=== PATIENT | male | born 1955 | race Caucasian/White ===

== ENCOUNTER 2017-01-20 11:12 | Emergency (ER) | payer OTHER, MEDICARE ==
[2017-01-20 11:20] VITALS: BP 134/89
[2017-01-20] MEDS ORDERED: DOXYCYCLINE HYCLATE 100 MG TABLET PO ONE (11:58)
--- NOTE | 2017-01-20 12:00 | ER Document Report ---
ED Medical Screen (RME) - General Chief Complaint: Shortness Of Breath Stated Complaint: SHORTNESS OF BREATH Time Seen by Provider: 01/20/17 11:52 Notes: [age]-year-old male patient comes emergency room complaining of a one-week history of a red swelling to his upper back with his been getting worse. He also feels dizzy off balance and some shortness of breath. Brief exam suggests erythema migrans lesion on the back, another skin lesion on the neck he reports is an area that he pulled a tick off of about the same time the upper back lesion started. I have greeted and performed a rapid initial assessment of this patient. A comprehensive ED assessment and evaluation of the patient, analysis of test results and completion of the medical decision making process will be conducted by additional ED providers. TRAVEL OUTSIDE OF THE [place] IN LAST 30 DAYS: No - Related Data Allergies/Adverse Reactions: pseudoephedrine [From Sudafed] Allergy (Verified 01/20/17 11:17) triprolidine [From Actifed] Allergy (Verified 01/20/17 11:17) Past Medical History - Social History Chew tobacco use (# tins/day): No Frequency of alcohol use: Social Drug Abuse: Marijuana - Past Medical History Cardiac Medical History: Reports: Hx Congestive Heart Failure, Hx Heart Attack - x4, Hx Hypercholesterolemia, Hx Hypertension Renal/ Medical History: Denies: Hx Peritoneal Dialysis GI Medical History: Reports: Hx Gastroesophageal Reflux Disease Psychiatric Medical History: Reports: Hx Depression Past Surgical History: Reports: Hx Cardiac Surgery, Hx Tonsillectomy - Immunizations Hx Diphtheria, Pertussis, Tetanus Vaccination: Yes Physical Exam - Vital signs Vitals: Temp Pulse Resp BP Pulse Ox 98.1 F 76 16 134/89 H 97 01/20/17 11:01/20/17 11:01/20/17 11:01/20/17 11:17 01/20/17 11:17 Course - Vital Signs Vital signs: Temp Pulse Resp BP Pulse Ox 98.1 F 76 16 134/89 H 97 01/20/17 11:17 01/20/17 11:17 01/20/17 11:17 01/20/17 11:17 01/20/17 11:17
[2017-01-20 12:28] LABS: ABSOLUTE EOSINOPHILS # (AUTO) 0.1 10^3/uL (0.0-0.6); ABSOLUTE LYMPHOCYTES (AUTO) 1.7 10^3/uL (0.5-4.7); ABSOLUTE MONOCYTES (AUTO) 0.7 10^3/uL (0.1-1.4); ABSOLUTE NEUT (AUTO) 3.1 10^3/uL (1.7-8.2); BASOPHILS % (AUTO) 0.5 % (0-2); EOSINOPHILS % (AUTO) 2.3 % (0-6); HEMATOCRIT 42.8 % (37.9-51.0); HEMOGLOBIN 14.5 g/dL (13.5-17.0); HGB HCT DIFFERENCE 0.7; LYMPHOCYTES % (AUTO) 30.3 % (13-45); MEAN CORPUSCULAR HGB CONC 33.9 g/dL (32.0-36.0); MEAN CORPUSCULAR VOLUME 91 fl (80-97); MONOCYTES % (AUTO) 12.2 % (3-13); RED BLOOD COUNT 4.68 10^6/uL (4.35-5.55); RED CELL DISTRIBUTION WIDTH 15.1 % (11.5-14.0); SEGMENTED NEUTROPHILS % (AUTO) 54.7 % (42-78); WHITE BLOOD COUNT 5.7 10^3/uL (4.0-10.5)
[2017-01-20 12:52] LABS: ALANINE AMINOTRANSFERASE 46 U/L (21-72); ALBUMIN 4.1 g/dL (3.5-5.0); ALKALINE PHOSPHATASE 100 U/L (38-126); ANION GAP 10 (5-19); ASPARTATE AMINO TRANSFERASE 33 U/L (17-59); BILIRUBIN,DIRECT 0.3 mg/dL (0.0-0.4); BILIRUBIN,TOTAL 0.4 mg/dL (0.2-1.3); BLOOD UREA NITROGEN 11 mg/dL (7-20); CALCIUM 9.2 mg/dL (8.4-10.2); CARBON DIOXIDE 25 mmol/L (22-30); CHLORIDE 106 mmol/L (98-107); CREATININE RESULT 0.87 mg/dL (0.52-1.25); GLUCOSE 114 mg/dL (75-110); POTASSIUM 4.5 mmol/L (3.6-5.0); SODIUM 140.9 mmol/L (137-145); TOTAL PROTEIN 7.5 g/dL (6.3-8.2)
--- NOTE | 2017-01-20 14:55 | ER Document Report ---
ED Respiratory Problem - General Chief Complaint: Shortness Of Breath Stated Complaint: SHORTNESS OF BREATH Time Seen by Provider: 01/20/17 11:52 Mode of Arrival: Ambulatory Information source: Patient Notes: Patient is a 61-year-old male who presents to the ER today for a rash to his upper back. Patient pulled a tick off of the right side of his neck one week ago and noticed the rash 3 days ago. Patient states that the rash is doing larger, red and only slightly tender to palpation. He denies any fevers, chills , joint pain, nausea, vomiting, blurred vision. He also admits that over the past week he has become more short of breath, He has CHF and takes Lasix as needed. He states that this is exertional. he denies swelling in his lower extremities. TRAVEL OUTSIDE OF THE [place] IN LAST 30 DAYS: No - Related Data Allergies/Adverse Reactions: pseudoephedrine [From Sudafed] Allergy (Verified 01/20/17 11:17) triprolidine [From Actifed] Allergy (Verified 01/20/17 11:17) Past Medical History - General Information source: Patient - Social History Smoking Status: Current Every Day Smoker Chew tobacco use (# tins/day): No Frequency of alcohol use: Social Drug Abuse: Marijuana Family History: Reviewed & Not Pertinent Patient has suicidal ideation: No Patient has homicidal ideation: No - Past Medical History Cardiac Medical History: Reports: Hx Congestive Heart Failure, Hx Heart Attack - x4, Hx Hypercholesterolemia, Hx Hypertension Renal/ Medical History: Denies: Hx Peritoneal Dialysis GI Medical History: Reports: Hx Gastroesophageal Reflux Disease Psychiatric Medical History: Reports: Hx Depression Past Surgical History: Reports: Hx Cardiac Surgery, Hx Tonsillectomy - Immunizations Hx Diphtheria, Pertussis, Tetanus Vaccination: Yes Review of Systems - Review of Systems Constitutional: No symptoms reported EENT: No symptoms reported Cardiovascular: No symptoms reported Respiratory: No symptoms reported Gastrointestinal: No symptoms reported Genitourinary: No symptoms reported Male Genitourinary: No symptoms reported Musculoskeletal: No symptoms reported Skin: No symptoms reported Hematologic/Lymphatic: No symptoms reported Neurological/Psychological: No symptoms reported Physical Exam - Vital signs Vitals: Temp Pulse Resp BP Pulse Ox 98.1 F 76 16 134/89 H 97 01/20/17 11:17 01/20/17 11:17 01/20/17 11:17 01/20/17 11:17 01/20/17 11:17 - Notes Notes: PHYSICAL EXAMINATION: GENERAL: Well-appearing and in no acute distress. HEAD: Atraumatic, normocephalic. EYES: Pupils equal round and reactive to light, extraocular movements intact, sclera anicteric, conjunctiva are normal. ENT: ear canals without erythema or foreign body, TMs pearly gonsales with good bony landmarks, nares patent, oropharynx clear without exudates. Moist mucous membranes. NECK: Normal range of motion, supple without lymphadenopathy LUNGS: CTAB and equal. No wheezes rales or rhonchi. HEART: Regular rate and rhythm without murmurs ABDOMEN: Soft, no tenderness. No guarding, no rebound BACK: no vertebral tenderness, normal ROM EXTREMITIES: Normal range of motion, no pitting edema. No cyanosis. NEUROLOGICAL: Cranial nerves grossly intact. Normal sensory/motor exams. PSYCH: Normal mood, normal affect. SKIN: Warm, Dry, normal turgor, target rash c/w erythema migrans on left upper back, nontender, no fluctuance, no induration Course - Re-evaluation Re-evalutation: 01/20/17 19:09 labwork unremarkable today, doxycycline started for lyme disease. Chest x-ray negative for any acute pathology, patient does not have any edema to the lower extremities. I did advise him due to his history of CHF and acute shortness of breath to start back on his Lasix daily until symptoms resolve when he follows up with his primary care provider. Lung sounds are clear today and vitals are all normal with a pulse ox of 98% on room air, normal respiratory rate. - Vital Signs Vital signs: Temp Pulse Resp BP Pulse Ox 98.1 F 76 16 134/89 H 97 01/20/17 11:18 01/20/17 11:18 01/20/17 11:18 01/20/17 11:18 01/20/17 11:18 - Laboratory Result Diagrams: 01/20/17 12:12 01/20/17 12:12 Laboratory results interpreted by me: 01/20/17 01/20/17 12:12 12:12 RDW 15.1 H Glucose 114 H Discharge - Discharge Clinical Impression: Erythema migrans (Lyme disease), SOB (shortness of breath) Condition: Stable Disposition: HOME, SELF-CARE Instructions: Lyme Disease ([facility]), Doxycycline ([facility]) Additional Instructions: Please start taking your Lasix daily until your shortness of breath is resolved. Return immediately for any new or worsening symptoms. Follow up with primary care provider, call tomorrow to make followup appointment. Prescriptions: Doxycycline Hyclate 100 mg PO BID #28 capsule
--- NOTE | 2017-01-20 15:56 | RADIOLOGY REPORT (SQ) ---
EXAM DESCRIPTION: CHEST PA/LAT COMPLETED DATE/TIME: 01/20/2017 3:43 pm REASON FOR STUDY: sob, chf COMPARISON: 01/08/2016 EXAM PARAMETERS: NUMBER OF VIEWS: two views TECHNIQUE: Digital Frontal and Lateral radiographic views of the chest acquired. RADIATION DOSE: NA LIMITATIONS: none FINDINGS: LUNGS AND PLEURA: No opacities, masses or pneumothorax. No pleural effusion. MEDIASTINUM AND HILAR STRUCTURES: No masses or contour abnormalities. HEART AND VASCULAR STRUCTURES: Heart normal size. No evidence for failure. BONES: No acute findings. HARDWARE: Pacemaker/ defibrillator on the left. OTHER: No other significant finding. IMPRESSION: NO SIGNIFICANT RADIOGRAPHIC FINDING IN THE CHEST. TECHNICAL DOCUMENTATION: JOB ID: [id number] [employer]- All Rights Reserved
[2017-01-24 08:01] LABS: LYME DISEASE IGG AND IGM AB <0.91 ISR (0.00-0.90); ROCKY MTN SPOTTED FEV IGG EIA Negative (Negative)
== END 2017-01-20 16:30 | disposition home or self-care (01) ==
LOC: ER 11:12
DX: A69.20 Lyme disease, unspecified (principal); R06.02 Shortness of breath; R21 Rash and other nonspecific skin eruption; M54.6 Pain in thoracic spine; S10.96XA Insect bite of unspecified part of neck, initial encounter; W57.XXXA Bitten or stung by nonvenomous insect and other nonvenomous arthropods, initial encounter; F17.200 Nicotine dependence, unspecified, uncomplicated
CPT/HCPCS: 36415; 71020; 80053; 85025; 86617; 86618; 86757; 99285

== ENCOUNTER 2020-05-10 23:29 | Observation (INO) | payer OTHER, MEDICARE ==
[2020-05-10 23:49] LABS: ABSOLUTE BASOPHILS # (AUTO) 0.1 10^3/uL (0.0-0.2); ABSOLUTE EOSINOPHILS # (AUTO) 0.1 10^3/uL (0.0-0.6); ABSOLUTE LYMPHOCYTES (AUTO) 2.7 10^3/uL (0.5-4.7); ABSOLUTE MONOCYTES (AUTO) 0.6 10^3/uL (0.1-1.4); ABSOLUTE NEUT (AUTO) 3.8 10^3/uL (1.7-8.2); BASOPHILS % (AUTO) 0.7 % (0-2); EOSINOPHILS % (AUTO) 1.7 % (0-6); HEMATOCRIT 39.7 % (37.9-51.0); HEMOGLOBIN 14.4 g/dL (13.5-17.0); LYMPHOCYTES % (AUTO) 37.4 % (13-45); MEAN CORPUSCULAR HEMOGLOBIN 33.1 pg (27.0-33.4); MEAN CORPUSCULAR HGB CONC 36.2 g/dL (32.0-36.0); MEAN CORPUSCULAR VOLUME 92 fl (80-97); MONOCYTES % (AUTO) 8.3 % (3-13); PLATELET COUNT 179 10^3/uL (150-450); RED BLOOD COUNT 4.34 10^6/uL (4.35-5.55); RED CELL DISTRIBUTION WIDTH 15.2 % (11.5-14.0); SEGMENTED NEUTROPHILS % (AUTO) 51.9 % (42-78); TOTAL CELLS COUNTED % (AUTO) 100 %; WHITE BLOOD COUNT 7.2 10^3/uL (4.0-10.5)
[2020-05-10] MEDS ORDERED: ASPIRIN 81 MG TABLET, CHEWABLE PO ONE (23:54)
[2020-05-10] MEDS ORDERED: MORPHINE SULFATE 10 MG/ML INJ IV ONE (23:54)
[2020-05-10] MEDS ORDERED: ONDANSETRON HCL INJ/PF 4 MG/2 ML SDV IV ONE (23:55)
--- NOTE | 2020-05-11 00:01 | ER Document Report ---
ED Cardiac - General Chief Complaint: Chest Pain Stated Complaint: CHEST PAIN Time Seen by Provider: 05/10/20 23:54 Primary Care Provider: BLAZE MCCRAY [NO LOCAL MD] - Follow up as needed Mode of Arrival: Medic Information source: Patient Notes: 64-year-old male arrives by EMS after having chest pain which was on and off since 1700 hrs. Patient has a history of having an IL in 2003 and in 2004 had a pacemaker placed. The battery was replaced and 2012. He was in [place] around 15 years ago and was told by human resources generalist he had a 5 to 7-year life span. Patient smokes cigars on a daily basis and smoked 1 today after watching his [employer] football team get defeated. Today it was Monday. Patient denies any coronavirus exposure. He and his and 4 dogs and 3 cats moved from [place] to [place] over the last 4 days. His times are therefore a bit groggy/disoriented today because the house moved. Patient drinks bourbon on a daily basis. He denies any illegal drugs. EMS was called by and patient took 1 of his old nitroglycerin tablets which was not very active. He got 4 nitroglycerin sprays by EMS which helped decrease his chest pain from a 7 to a 3. I just checked on him at 0 115 and it continues to be a 3. He does however have a very severe throbbing headache. He thinks this is from the nitroglycerin. TRAVEL OUTSIDE OF THE [place] IN LAST 30 DAYS: No - HPI Patient complains to provider of: Chest pain Use of: Alcohol Was the onset of pain: Sudden Is the pain a: New problem Chest pain location: Substernal Quality of pain: Tightness Severity now: Moderate - Around a 7 out of 10 chest pain upon arrival via EMS. 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 The EMS placed a IV into his left dorsal hand. - Related Data Allergies/Adverse Reactions: pseudoephedrine [From Sudafed] Allergy (Verified 03/27/20 00:39) triprolidine [From Actifed] Allergy (Verified 03/27/20 00:39) Past Medical History - Social History Smoking Status: Unknown if Ever Smoked Cigarette use (# per day): Yes - And cigars Chew tobacco use (# tins/day): No Smoking Education Provided: No Frequency of alcohol use: Occasional Drug Abuse: None Lives with: Family Family History: COPD, Other - CHF Patient has suicidal ideation: No Patient has homicidal ideation: No - Past Medical History Cardiac Medical History: Reports: Hx Congestive Heart Failure, Hx Heart Attack - x4, Hx Hypercholesterolemia, Hx Hypertension Renal/ Medical History: Denies: Hx Peritoneal Dialysis GI Medical History: Reports: Hx Gastroesophageal Reflux Disease Psychiatric Medical History: Reports: Hx Anxiety, Hx Depression Past Surgical History: Reports: Hx Cardiac Surgery, Hx Pacemaker - w/ defib, Hx Tonsillectomy - Immunizations Hx Diphtheria, Pertussis, Tetanus Vaccination: Yes Review of Systems - Review of Systems Constitutional: See HPI, Weakness EENT: No symptoms reported Cardiovascular: See HPI, Chest pain Respiratory: See HPI, Short of breath Gastrointestinal: No symptoms reported Genitourinary: No symptoms reported Male Genitourinary: No symptoms reported Musculoskeletal: No symptoms reported Skin: No symptoms reported Hematologic/Lymphatic: No symptoms reported Neurological/Psychological: No symptoms reported Physical Exam - Vital signs Vitals: Temp Resp BP Pulse Ox 98.6 F 14 124/79 97 05/10/20 23:34 05/10/20 23:34 05/10/20 23:34 05/10/20 23:34 Interpretation: Normal - General General appearance: Alert - HEENT Head: Normocephalic, Atraumatic Eyes: Normal Pupils: PERRL Sinus: Normal Nasal: Normal Mouth/Lips: Normal Mucous membranes: Normal Pharynx: Normal Neck: Normal - Respiratory Respiratory status: No respiratory distress Chest status: Nontender Breath sounds: Normal Chest palpation: Normal - Cardiovascular Rhythm: Regular Heart sounds: Normal auscultation Murmur: No - Abdominal Inspection: Normal Distension: No distension Bowel sounds: Normal Tenderness: Nontender Organomegaly: No organomegaly - Rectal Prostate: Other - deferred - Genitourinary Scrotum: Other - deferred - Back Back: Normal - Extremities General upper extremity: Normal inspection, Nontender, Normal color, Normal ROM, Normal temperature General lower extremity: Normal inspection, Nontender, Normal color, Normal ROM, Normal temperature, Normal weight bearing. No: Apoorva's sign - Neurological Neuro grossly intact: Yes Cognition: Normal Orientation: AAOx4 Spencer Coma Scale Eye Opening: Spontaneous Spencer Coma Scale Verbal: Oriented Spencer Coma Scale Motor: Obeys Commands Spencer Coma Scale Total: 15 Speech: Normal Motor strength normal: LUE, RUE, LLE, RLE Sensory: Normal - Psychological Associated symptoms: Normal affect - Skin Skin Temperature: Warm Skin Moisture: Dry Skin Color: Normal Course - Vital Signs Vital signs: Temp Pulse Resp BP Pulse Ox 98.6 F 15 117/63 98 05/10/20 23:36 05/11/20 01:01 05/11/20 01:01 05/11/20 01:01 - Laboratory Result Diagrams: 05/10/20 23:32 05/10/20 23:32 Laboratory results interpreted by me: 05/10/20 05/10/20 05/10/20 23:32 23:32 23:32 RBC 4.34 L MCHC 36.2 H RDW 15.2 H Potassium 3.5 L Chloride 108 H Glucose 124 H Magnesium Creatine Kinase 183 H NT-Pro-B Natriuret Pep 539 H 05/10/20 23:32 RBC MCHC RDW Potassium Chloride Glucose Magnesium 2.5 H Creatine Kinase NT-Pro-B Natriuret Pep - Diagnostic Test Radiology reviewed: Reports reviewed - No obvious COVID lesions or pneumonia. Patient has a pacer in the left chest. - EKG Interpretation by Me EKG shows normal: Sinus rhythm Rate: Normal Rhythm: NSR - With heart rate 84 bpm with paired ventricular premature complexes sinus rhythm probable left atrial abnormality borderline R wave progression anterior leads nonspecific T wave abnormalities lateral leads and borderline prolonged QT interval and I agree with the computer readout from this EKG. I also evaluated this EKG. Critical Care Note - Critical Care Note Comments: I discussed this case with Dr. Lowe at 0100 and he advised admission with hospitalist and he will evaluate the patient tomorrow morning. This case was discussed with Dr. Ryan Hendricks at 0 112 and he advises obs telemetry and to obtain a better family history Discharge - Discharge Clinical Impression: Chest pain at rest CHF (congestive heart failure) Qualifiers: Heart failure type: unspecified Heart failure chronicity: unspecified Qualified Code(s): I50.9 - Heart failure, unspecified Clinical Impression: (Ruled Out): CAD (coronary artery disease) Condition: Good Disposition: ADMITTED OBSERVATION Admitting Provider: baltazar Pena Unit Admitted: Telemetry Additional Instructions: Transfer this patient to the observation telemetry bed. [facility]errals: [facility] [NO LOCAL MD] - Follow up as needed
[2020-05-11 00:16] LABS: INTERNATIONAL RATION (INR) 0.95; PROTHROMBIN TIME 12.9 SEC (11.4-15.4)
--- NOTE | 2020-05-11 00:17 | RADIOLOGY REPORT (SQ) ---
EXAM DESCRIPTION: [facility]: XR CHEST 1 VIEW CLINICAL HISTORY: 64 years Male; chest pain; COMPARISON: 01/20/2017 FINDINGS: Lungs: Lungs are clear, with no focal infiltrate, pneumothorax, or pleural effusion. Mediastinum: Mediastinum is within normal limits for this positioning. AICD is in place, as on prior exam. Bones: Bony structures are unremarkable. IMPRESSION: 1. No acute pulmonary findings. 2. AICD
[2020-05-11 00:32] LABS: ALKALINE PHOSPHATASE 84 U/L (38-126); ANION GAP 7 (5-19); ASPARTATE AMINO TRANSFERASE 29 U/L (17-59); BILIRUBIN,DIRECT 0.3 mg/dL (0.0-0.4); BILIRUBIN,TOTAL 0.4 mg/dL (0.2-1.3); BLOOD UREA NITROGEN 16 mg/dL (7-20); CARBON DIOXIDE 27 mmol/L (22-30); CHLORIDE 108 mmol/L (98-107); CREATINE KINASE 183 U/L (55-170); GLUCOSE 124 mg/dL (75-110); POTASSIUM 3.5 mmol/L (3.6-5.0); TOTAL PROTEIN 7.2 g/dL (6.3-8.2)
[2020-05-11 00:39] LABS: CREATINE KINASE MB 2.22 ng/mL (<4.55); TROPONIN I < 0.012 ng/mL
[2020-05-11] MEDS ORDERED: NITROGLYCERIN 2% OINTMENT 1 GM PACKET TP ONE (01:06)
[2020-05-11] MEDS ORDERED: FENTANYL CITRATE INJ/PF 100 MCG/2 ML AMPUL IV ONE (01:20)
[2020-05-11] MEDS ORDERED: MORPHINE SULFATE 10 MG/ML INJ IV PRN ×4 (01:39→03:46)
[2020-05-11] MEDS ORDERED: MAG HYDROX/AL HYDROX/SIMETH SUSP 30 ML UDCUP PO PRN (01:39)
[2020-05-11] MEDS ORDERED: LORAZEPAM INJ 2 MG/1 ML VIAL IV PRN (01:39)
[2020-05-11] MEDS ORDERED: GUAIFENESIN SYRP 200 MG/10 ML UDC PO PRN (01:39)
[2020-05-11] MEDS ORDERED: MAGNESIUM HYDROXIDE SUSP 30 ML UDCUP PO PRN (01:39)
[2020-05-11] MEDS ORDERED: LEVALBUTEROL HCL NEB 0.63 MG/3 ML AMPUL NEB PRN (01:39)
[2020-05-11] MEDS ORDERED: HYDRALAZINE HCL INJ/PF 20 MG/1 ML SDV IV PRN (01:39)
[2020-05-11] MEDS ORDERED: NICOTINE 21 MG/24 HR PATCH.TD24 TD PRN (01:39)
[2020-05-11] MEDS ORDERED: ACETAMINOPHEN 325 MG TABLET PO PRN (01:39)
[2020-05-11] MEDS ORDERED: MELATONIN 5 MG TABLET PO PRN (01:39)
[2020-05-11] MEDS ORDERED: ONDANSETRON HCL INJ/PF 4 MG/2 ML SDV IV PRN (01:59)
--- NOTE | 2020-05-11 02:12 | EKG REPORT ---
SEVERITY:- ABNORMAL ECG - SINUS RHYTHM PAIRED VENTRICULAR PREMATURE COMPLEXES PROBABLE LEFT ATRIAL ABNORMALITY PVC : Confirmed by: Cesia Walker MD 11-May-2020 02:12:09
--- NOTE | 2020-05-11 05:10 | PDOC H&P ---
History of Present Illness Admission Date/PCP: 05/11/2020 01:43 [facility] Patient complains of: Chest pain History of Present Illness: HERNAN ÁLVAREZ is a 64 year old male who presents the emergency room with acute chest pain. He admits developing intermittent brief periods of chest pain about 1 PM on 05/10/2020. The chest pain was a mild intermittent substernal tightness/pressure without radiation. The pain began while he was sitting at home watching football on television. He continued to have intermittent episodes of pain until he developed a sustained episode of moderately severe pain radiating down his left arm at 11 PM causing him to summon EMS. He admits accompanying moderate dyspnea with generalized weakness and associated orthostatic lightheadedness. He denies other associated or accompanying signs and symptoms. He admits prior similar episodes due to coronary artery disease. He did take nitroglycerin at home without improvement prior to calling EMS. He has not identified any aggravating or ameliorating factors for his chest pain. In the emergency room he was found to have an EKG and initial cardiac enzymes that showed no evidence of acute myocardial ischemia or injury. His pain improved with nitroglycerin, oxygen and aspirin given by EMS. His pain resolved with morphine and additional nitroglycerin in the emergency room. He was subsequently admitted to the hospital on observation status for further evaluation and treatment. Past Medical History Cardiac Medical History: Reports: Congestive Heart Failure, Coronary Artery Disease, Myocardial Infarction - x4, Hyperlipidema, Hypertension, Other - Ventricular fibrillation Denies: DVT, Pulmonary Embolism Pulmonary Medical History: Denies: Asthma, Chronic Obstructive Pulmonary Disease (COPD) EENT Medical History: Denies: Cataracts, Ears - Hearing aids Neurological Medical History: Reports: Other - Restless leg syndrome Denies: Hemorrhagic CVA, Ischemic CVA, Seizures Endocrine Medical History: Denies: Diabetes Mellitus Type 1, Diabetes Mellitus Type 2, Hyperthyroidism, Hypothyroidism Renal/ Medical History: Denies: Chronic Kidney Disease, Nephrolithiasis Malignancy Medical History: Reports: None GI Medical History: Reports: Gastroesophageal Reflux Disease Denies: Cirrhosis, Hepatitis Musculoskeltal Medical History: Denies: Arthritis, Gout Skin Medical History: Denies: Eczema, Psoriasis Psychiatric Medical History: Reports: Depression Denies: Alcohol Dependency, Substance Abuse, Tobacco Dependency Traumatic Medical History: Reports: None Hematology: Denies: Anemia, Bleeding Tendencies Infectious Medical History: Reports: None Past Surgical History Past Surgical History: Reports: Cardiac Catheterization, Coronary Stent, Internal Defibrillator - AICD combo with pacemaker, Pacemaker - AICD combo with pacemaker, Tonsillectomy, Other - Nasal surgery Social History Information Source: Patient Lives with: Spouse/Significant other Smoking Status: Current Every Day Smoker Electronic Cigarette use?: No Frequency of Alcohol Use: Social Hx Recreational Drug Use: No Drugs: None Hx Prescription Drug Abuse: No - Advance Directive Resuscitation Status: Full Code Surrogate healthcare decision maker:: Betsey Marrero Family History Family History: DM, Malignancy. denies: CAD, Hypertension Parental Family History Reviewed: Yes Children Family History Reviewed: No Sibling(s) Family History Reviewed.: Yes Medication/Allergy Home Medications: Doxycycline Hyclate 100 mg PO BID #28 capsule 01/20/17 Metoclopramide HCl [Reglan] 10 mg PO TID PRN #40 tablet 03/27/20 Allergies/Adverse Reactions: pseudoephedrine [From Sudafed] Allergy (Verified 03/27/20 00:39) triprolidine [From Actifed] Allergy (Verified 03/27/20 00:39) Review of Systems Constitutional: PRESENT: as per HPI, weakness - Generalized, weight loss - He has been unintentionally losing weight over the last year. ABSENT: chills, fever(s) Eyes: ABSENT: visual disturbances, other - Eye pain Ears: ABSENT: hearing changes, other - Ear pain Nose, Mouth, and Throat: ABSENT: headache(s), sore throat Cardiovascular: PRESENT: as per HPI, chest pain, other - Orthostatic lightheadedness. ABSENT: dyspnea on exertion, edema, palpitations Respiratory: PRESENT: as per HPI, cough - Chronic, dyspnea Gastrointestinal: ABSENT: abdominal pain, constipation, diarrhea, nausea, vomiting Genitourinary: ABSENT: dysuria, hematuria Musculoskeletal: ABSENT: back pain, joint swelling, muscle weakness Integumentary: ABSENT: pruritus, rash Neurological: ABSENT: confusion, convulsions, focal weakness, memory loss, syncope Psychiatric: ABSENT: anxiety, depression Endocrine: ABSENT: cold intolerance, heat intolerance Hematologic/Lymphatic: ABSENT: easy bleeding, easy bruising Allergic/Immunologic: ABSENT: seasonal rhinorrhea Physical Exam Vital Signs: Temp Pulse Resp BP Pulse Ox 98.1 F 75 17 117/63 98 05/11/20 01:32 05/11/20 01:32 05/11/20 01:32 05/11/20 01:32 05/11/20 01:32 General appearance: PRESENT: no acute distress, cooperative, obese Head exam: PRESENT: atraumatic, normocephalic Eye exam: PRESENT: conjunctiva pink. ABSENT: conjunctival injection, scleral icterus Ear exam: PRESENT: normal external ear exam. ABSENT: bleeding, drainage Mouth exam: PRESENT: dry mucosa, neck supple Neck exam: ABSENT: thyromegaly, tracheal deviation Respiratory exam: PRESENT: clear to auscultation jalil, symmetrical, unlabored Cardiovascular exam: PRESENT: RRR. ABSENT: clicks, gallop, rubs Pulses: PRESENT: normal radial pulses, normal dorsalis pedis pul Vascular exam: PRESENT: normal capillary refill. ABSENT: pallor GI/Abdominal exam: PRESENT: normal bowel sounds, soft Rectal exam: PRESENT: deferred Extremities exam: ABSENT: joint swelling, pedal edema Musculoskeletal exam: ABSENT: deformity, dislocation Neurological exam: PRESENT: alert, oriented to person, oriented to place, oriented to time, oriented to situation, CN II-XII grossly intact. ABSENT: motor sensory deficit Psychiatric exam: PRESENT: appropriate affect, normal mood Skin exam: ABSENT: dry, intact, jaundice, rash, urticaria, warm Results Laboratory Results: 05/10/20 23:32 05/10/20 23:32 05/10/20 05/10/20 05/10/20 23:32 23:32 23:32 WBC 7.2 RBC 4.34 L Hgb 14.4 Hct 39.7 MCV 92 MCH 33.1 MCHC 36.2 H RDW 15.2 H Plt Count 179 Seg Neutrophils % 51.9 Sodium 141.9 Potassium 3.5 L Chloride 108 H Carbon Dioxide 27 Anion Gap 7 BUN 16 Creatinine 0.87 Est GFR ( Amer) > 60 Glucose 124 H Calcium 9.0 Magnesium 2.5 H Total Bilirubin 0.4 AST 29 Alkaline Phosphatase 84 Total Protein 7.2 Albumin 4.0 05/10/20 05/10/20 05/10/20 23:32 23:32 23:32 Creatine Kinase 183 H CK-MB (CK-2) 2.22 Troponin I < 0.012 NT-Pro-B Natriuret Pep 539 H Impressions: Chest X-Ray 05/10/20 23:35 IMPRESSION: 1. No acute pulmonary findings. 2. AICD Assessment and Plan - Diagnosis (1) Chest pain at rest Is this a current diagnosis for this admission?: Yes (2) Coronary artery disease Qualifiers: Coronary Disease-Associated Artery/Lesion type: [place] artery [place] vs. transplanted heart: [place] heart Associated angina: angina presence unspecified Qualified Code(s): I25.10 - Atherosclerotic heart disease of [place] coronary artery without angina pectoris Is this a current diagnosis for this admission?: Yes (3) Gastroesophageal reflux disease Qualifiers: Esophagitis presence: esophagitis presence not specified Qualified Code(s): K21.9 - Gastro-esophageal reflux disease without esophagitis Is this a current diagnosis for this admission?: Yes (4) CHF (congestive heart failure) Qualifiers: Heart failure type: unspecified Heart failure chronicity: unspecified Qualified Code(s): I50.9 - Heart failure, unspecified Is this a current diagnosis for this admission?: Yes (5) Restless leg syndrome Is this a current diagnosis for this admission?: Yes (6) Tobacco use disorder, continuous Is this a current diagnosis for this admission?: Yes - Plan Summary Summary: Patient will be admitted to the telemetry unit where he will receive routine supportive and symptomatic cares. A consultation with Dr. Walker will be obtained for cardiology evaluation. Serial cardiac enzymes will be performed. Patient received morphine sulfate 2 to 4 mg IV every 2 hours as needed for pain. He will receive Ativan 1 mg IV every 4 hours as needed for anxiety or r estlessness. He will receive nitroglycerin 2% ointment 1 g applied every 6 hours. CBCs, metabolic profiles and additional radiographic and/or laboratory evaluations will be obtained as needed. Smoking cessation is advised and counseled briefly at the bedside. A nicotine replacement patch is available for the patient's use, if desired. - Time Time Spent with patient: 15-24 minutes Smoking Cessation Education: 3 to 10 minutes Medications reviewed and adjusted accordingly: Yes Anticipated Discharge Disposition: Home, Self Care Anticipated Discharge Timeframe: within 36 hours - Inpatient Certification Based on my medical assessment, after consideration of the patient's comorbidities, presenting symptoms, or acuity I expect that the services needed warrant INPATIENT care.: No I certify that my determination is in accordance with my understanding of Medicare's requirements for reasonable and necessary INPATIENT services [42 CFR 412.3e].: No
[2020-05-11] MEDS: HEPARIN SOD (PORCINE) 5,000 UNIT/ML 1 ML VIAL SUBCUT SCH ×3 (05:57→22:45)
[2020-05-11] MEDS: PANTOPRAZOLE SODIUM 40 MG TABLET.DR PO SCH ×2 (05:57→17:15)
[2020-05-11 06:52] LABS: CREATINE KINASE MB 1.58 ng/mL (<4.55)
[2020-05-11 07:03] LABS: TROPONIN I < 0.012 ng/mL
[2020-05-11] MEDS: DOCUSATE SODIUM 100 MG CAPSULE PO SCH ×2 (09:24→17:15)
[2020-05-11 12:21] LABS: CREATINE KINASE MB 1.47 ng/mL (<4.55)
[2020-05-11 12:28] LABS: TROPONIN I < 0.012 ng/mL
--- NOTE | 2020-05-11 16:39 | Progress Note ---
Provider Note Provider Note: Patient seen and examined by me today. Admitted late this morning by Dr. Hendricks, see H&P for full details of admission. Discussed the case with cardiology who is planning to evaluate the patient and adjust his medications. Outpatient testing planned in the future. I recommended the patient follow-up with advanced heart failure clinic if there is one locally.
[2020-05-11 17:48] LABS: CREATINE KINASE MB 1.26 ng/mL (<4.55); TROPONIN I 0.013 ng/mL
[2020-05-11] MEDS ORDERED: ATORVASTATIN CALCIUM 40 MG TABLET PO SCH (22:00)
[2020-05-11] MEDS ORDERED: ROPINIROLE HCL 1 MG TABLET PO SCH (22:00)
--- NOTE | 2020-05-11 22:06 | PDOC CONSULTATION ---
Consultation-Blank Consultation: CARDIOLOGY CONSULTATION by Dr. Cesia Walker on 05/11/2020. Patient seen for p.m. 60 minutes spent with patient more than 50% of time spent in direct patient care. REASON FOR CONSULTATION: Patient with history of CAD and prior history of SC and LAD stent and cardiomyopathy with history of AICD placement admitted with chest pain. Hence further cardiac evaluation. 2. Consult REQUESTING PHYSICIAN: Dr. Ryan Bowles, [facility]. HISTORY OF PRESENT ILLNESS: Patient is a 64-year-old male with known history of coronary artery disease, history of prior SC and LAD stent, cardiomyopathy and AICD placement, and history of hypertension and hyperlipidemia admitted with chest pain. The patient states around 1 PM yesterday while he was sitting down had intermittent chest pressure. It was associated with some degree of diaphoresis. Subsequently the chest heaviness became sustained and was of moderate intensity. There was no actual relief with sublingual nitroglycerin. The patient states subsequently was given a few more nitroglycerin sprays by the EMT which caused partial relief but no total relief of his chest pressure. It was associated with some degree of orthostatic dizziness and also some degree of shortness of breath. There is no palpitations or firing of his AICD. There is no PND orthopnea or leg edema. The patient's EKG shows no acute changes. And his troponin I is negative so far. Past Medical History Cardiac Medical History: Reports: Congestive Heart Failure, Coronary Artery Disease, Myocardial Infarction - x4, Hyperlipidema, Hypertension, Other - Ventricular fibrillation. The patient states in the past he has had an SC and cardiac catheterization told showed a totally occluded left anterior descending artery and LV ejection fraction was around 12%. He had opening of the total occlusion of the LAD and stents were placed. Subsequently a few months later his ejection fraction came up to 30%. He also has a history of ventricular fibrillation and has an AICD placed. This seems to be single-chamber AICD. He states he has not had a stress test in a few years. And he has not had an echocardiogram to see what his LV ejection fraction was. The patient states his cardiac catheterization and stent placement was in [facility]. Will get records. Denies: DVT, Pulmonary Embolism Pulmonary Medical History: Denies: Asthma, Chronic Obstructive Pulmonary Disease (COPD) EENT Medical History: Denies: Cataracts, Ears - Hearing aids Neurological Medical History: Reports: Other - Restless leg syndrome Denies: Hemorrhagic CVA, Ischemic CVA, Seizures Endocrine Medical History: Denies: Diabetes Mellitus Type 1, Diabetes Mellitus Type 2, Hyperthyroidism, Hypothyroidism Renal/ Medical History: Denies: Chronic Kidney Disease, Nephrolithiasis Malignancy Medical History: Reports: None GI Medical History: Reports: Gastroesophageal Reflux Disease Denies: Cirrhosis, Hepatitis Musculoskeltal Medical History: Denies: Arthritis, Gout Skin Medical History: Denies: Eczema, Psoriasis Psychiatric Medical History: Reports: Depression Denies: Alcohol Dependency, Substance Abuse, Tobacco Dependency Traumatic Medical History: Reports: None Hematology: Denies: Anemia, Bleeding Tendencies Infectious Medical History: Reports: None Past Surgical History Past Surgical History: Reports: Cardiac Catheterization, Coronary Stent, Internal Defibrillator - AICD combo with pacemaker, Pacemaker - AICD combo with pacemaker, Tonsillectomy, Other - Nasal surgery Social History Information Source: Patient Lives with: Spouse/Significant other Smoking Status: Current Every Day Smoker Electronic Cigarette use?: No Frequency of Alcohol Use: Social Hx Recreational Drug Use: No Drugs: None Hx Prescription Drug Abuse: No - Advance Directive Resuscitation Status: Full Code Surrogate healthcare decision maker:: Is the patient's , Ms. Betsey Marrero Family History Family History: DM, Malignancy. denies: CAD, Hypertension Parental Family History Reviewed: Yes Children Family History Reviewed: No Sibling(s) Family History Reviewed.: Yes Medication/Allergy Home Medications: Aspirin [Ecotrin 81 mg EC Tablet] 81 mg PO BID 05/11/20 Atorvastatin Calcium [Lipitor 80 mg Tablet] 80 mg PO QHS 05/11/20 Carvedilol 25 mg PO BID 05/11/20 Fluoxetine HCl [Prozac 20 mg Capsule] 20 mg PO DAILY 05/11/20 Furosemide [Lasix 40 mg Tablet] 40 mg PO DAILYP PRN 05/11/20 Lisinopril 10 mg PO DAILY 05/11/20. He states the last dose of lisinopril was yesterday around 12 noon. [There is on 05/10/2020]. Multivitamin [Tab-A-Starr] 1 each PO DAILY 05/11/20 Nitroglycerin [Nitrostat 0.4 mg (1/150 Gr) Tabs 25/Bottle] 1 tab SL Q5MP PRN 05/11/20 Omeprazole 40 mg PO DAILY 05/11/20 Ropinirole HCl [Requip] 7.5 mg PO QPM 05/11/20 Spironolactone [Aldactone 25 mg Tablet] 25 mg PO QAM 05/11/20 Allergies/Adverse Reactions: pseudoephedrine [From Sudafed] Allergy (Verified 03/27/20 00:39) triprolidine [From Actifed] Allergy (Verified 03/27/20 00:39) Current Medications Generic Name Dose Route Start Last Admin Trade Name Freq PRN Reason Stop Dose Admin Acetaminophen 650 mg 05/11/20 01:39 Tylenol 325 Mg Tablet PO 06/10/20 01:38 Q4HP PRN For headache, pain or fever Al Hydrox/Mg Hydrox/Simethicone 30 ml 05/11/20 01:39 Maalox Plus Susp 30 Udcup PO 06/10/20 01:38 Q6HP PRN HEARTBURN Atorvastatin Calcium 40 mg 05/11/20 22:00 05/11/20 22:43 Lipitor 40 Mg Tablet PO 06/10/20 21:59 40 mg QHS CHELA Administration Carvedilol 25 mg 05/11/20 22:00 05/11/20 22:43 Coreg 12.5 Mg Tablet PO 06/10/20 21:59 25 mg Q12 CHELA Administration Docusate Sodium 100 mg 05/11/20 10:00 05/11/20 17:15 Colace 100 Mg Capsule PO 06/10/20 09:59 100 mg BID CHELA Administration Furosemide 40 mg 05/12/20 10:00 Lasix 40 Mg Tablet PO 06/11/20 09:59 DAILY CHELA Guaifenesin 200 mg 05/11/20 01:39 Robitussin Syrup 200 Mg/10 Ml Ud Cup PO 06/10/20 01:38 Q4HP PRN COUGH Heparin Sodium (Porcine) 5,000 unit 05/11/20 06:00 05/11/20 22:45 Heparin Inj 5,000 Units/Ml 1 Ml Vial SUBCUT 06/10/20 05:59 5,000 unit Q8 CHELA Administration Hydralazine HCl 20 mg 05/11/20 01:39 Apresoline Inj/Pf 20 Mg/1 Ml Sdv IV 06/10/20 01:38 Q4HP PRN Give For Sbp > 160 / Dbp > 100 Levalbuterol HCl 0.63 mg 05/11/20 01:39 05/11/20 13:12 Xopenex Neb 0.63 Mg/3 Ml Ampul NEB 06/10/20 01:38 0.63 mg RTQ2HP PRN Administration SHORTNESS OF BREATH Lorazepam 1 mg 05/11/20 01:39 Ativan Inj 2 Mg/1 Ml Vial IV 05/18/20 01:38 Q4HP PRN ANXIETY/AGITATION Magnesium Hydroxide 30 ml 05/11/20 01:39 Milk Of Magnesia 30 Ml Udcup PO 06/10/20 01:38 HSP PRN FOR CONSTIPATION Melatonin 5 mg 05/11/20 01:39 Melatonin 5 Mg Tablet PO 06/10/20 01:38 HSP PRN SLEEP OR INSOMNIA Morphine Sulfate 2 mg 05/11/20 03:46 Morphine 10 Mg/Ml Inj IV 05/18/20 03:45 Q2HP PRN PAIN SCALE OF 2 Morphine Sulfate 3 mg 05/11/20 03:46 Morphine 10 Mg/Ml Inj IV 05/18/20 03:45 Q2HP PRN FOR PAIN SCALE 3-4 Morphine Sulfate 4 mg 05/11/20 03:46 Morphine 10 Mg/Ml Inj IV 05/18/20 03:45 Q2HP PRN PAIN SCALE OF 5 Nicotine 1 each 05/11/20 01:39 Nicoderm 21 Mg/24 Hr Transderm Patch TD 06/10/20 01:38 DAILYP PRN WITHDRAWAL SYMPTOMS Ondansetron HCl 4 mg 05/11/20 01:59 Zofran Inj/Pf 4 Mg/2 Ml Sdv IV 06/10/20 01:58 Q4HP PRN FOR NAUSEA/VOMITING Pantoprazole Sodium 40 mg 05/11/20 06:00 05/11/20 17:[address] Tablet PO 06/10/20 05:59 40 mg BID@0600,1700 CHELA Administration Ropinirole HCl 0.5 mg 05/11/20 22:00 05/11/20 22:44 Requip 1 Mg Tablet PO 06/10/20 21:59 0.5 mg QHS CHELA Administration Sodium Chloride 2.5 ml 05/11/20 06:00 05/11/20 22:48 Saline Flush 2.5 Ml Monoject Prefil Syrin IV 06/10/20 05:59 2.5 ml Q8 CHELA Administration Spironolactone 25 mg 05/12/20 10:00 Aldactone 25 Mg Tablet PO 06/11/20 09:59 DAILY CHELA Discontinued Medications Generic Name Dose Route Start Last Admin Trade Name Radha PRN Reason Stop Dose Admin Aspirin 324 mg 05/10/20 23:54 05/11/20 00:43 Aspirin 81 Mg Chewable Tablet PO 05/10/20 23:55 324 mg NOW ONE Administration Fentanyl Citrate 50 mcg 05/11/20 01:20 05/11/20 02:49 Sublimaze Inj/Pf 100 Mcg/2 Ml Ampule IV 05/11/20 01:21 Not Given NOW ONE Morphine Sulfate 4 mg 05/10/20 23:54 05/11/20 00:45 Morphine 10 Mg/Ml Inj IV 05/10/20 23:55 Not Given NOW ONE Morphine Sulfate 2 - 4 mg 05/11/20 01:39 Morphine 10 Mg/Ml Inj IV 05/18/20 01:38 Q2HP PRN See protocol Protocol Nitroglycerin 0.5 gm 05/11/20 01:06 05/11/20 02:48 Nitrol 2% Ointment 1gm Packet TP 05/11/20 01:07 Not Given NOW ONE Ondansetron HCl 4 mg 05/10/20 23:55 05/11/20 00:43 Zofran Inj/Pf 4 Mg/2 Ml Sdv IV 05/10/20 23:56 4 mg NOW ONE Administration Review of Systems Constitutional: PRESENT: as per HPI, weakness - Generalized, weight loss - He has been unintentionally losing weight over the last year. ABSENT: chills, fever(s) Eyes: ABSENT: visual disturbances, other - Eye pain Ears: ABSENT: hearing changes, other - Ear pain Nose, Mouth, and Throat: ABSENT: headache(s), sore throat Cardiovascular: PRESENT: as per HPI, chest pain, other - Orthostatic lightheadedness. ABSENT: dyspnea on exertion, edema, palpitations Respiratory: PRESENT: as per HPI, cough - Chronic, dyspnea Gastrointestinal: ABSENT: abdominal pain, constipation, diarrhea, nausea, vomiting Genitourinary: ABSENT: dysuria, hematuria Musculoskeletal: ABSENT: back pain, joint swelling, muscle weakness Integumentary: ABSENT: pruritus, rash Neurological: ABSENT: confusion, convulsions, focal weakness, memory loss, syncope Psychiatric: ABSENT: anxiety, depression Endocrine: ABSENT: cold intolerance, heat intolerance Hematologic/Lymphatic: ABSENT: easy bleeding, easy bruising Allergic/Immunologic: ABSENT: seasonal rhinorrhea PHYSICAL EXAMINATION: The patient is well-built and well-nourished. At present no acute distress. He was lying flat on his back and he has no orthopnea. Selected Entries 05/11/20 17:15 Temperature 98.0 F Temperature Oral Source Pulse Rate 73 Respiratory 19 Rate Blood Pressure 133/78 H Blood Pressure 96 Mean BP Location Left Arm BP Position Supine O2 Sat by Pulse 97 Oximetry Oxygen Delivery Room Air Method HEAD: Head is atraumatic normocephalic. Eyes: Pupils are equal round regular reactive light accommodation extraocular movements are normal there is no congenital pallor there is no scleral icterus. Ears: External auditory canals are clear, there are no lesions of the pinna. Nose: No deviated nasal septum and no inflammation of the nasal mucous membrane. Mouth: Mucous membranes of mouth are moist tongue is moist there is no ulcers there is no bleeding from the gums. Throat: There is no redness of the oropharynx there is no exudates. Skin: There is no petechia or ecchymosis there is no skin lesions or skin rashes. Neck: Neck is supple there is no JVD carotids equal there is no bruit there is no lymphadenopathy there is no neck stiffness. There is no goiter trachea central lungs: Lungs are clear to auscultation percussion there is no accessory muscles of respiration in use. There is no rhonchi rales or wheezing. There is no chest wall tenderness. HEART: S1-S2 is heard there is no S3 gallop there is no S4 gallop S1 is of normal intensity. There is no rub. The systolic murmur in the left sternal border and apex without radiation. Abdomen: Abdomen is soft nontender there is no paraspinal megaly bowel sounds well heard there is no tender areas of masses. There is no rebound guarding or rigidity. Extremities: Femorals are well felt there is no femoral bruits neck pulses are well felt there is no pedal edema there is no DVT or cellulitis there is no cyanosis or clubbing there is no DVT or cellulitis. There is no calf tenderness. TC OPERATOR: The patient is awake alert oriented 3 with no focal deficits. Psychiatric: The patient judgment and insight are intact and her affect is normal. KG #1: SINUS RHYTHM [PVPC] . PAIRED VENTRICULAR PREMATURE COMPLEXES [PLAA] . PROBABLE LEFT ATRIAL ABNORMALITY EKG #2 SINUS RHYTHM [VPC] . VENTRICULAR PREMATURE COMPLEX [AMI41] . CONSIDER ANTERIOR INFARCT [T3LA] . ABNORMAL T, CONSIDER ISCHEMIA, LATERAL LEADS Labs- Entire Visit 05/10/20 05/10/20 05/10/20 23:32 23:32 23:32 WBC 7.2 RBC 4.34 L Hgb 14.4 Hct 39.7 MCV 92 MCH 33.1 MCHC 36.2 H RDW 15.2 H Plt Count 179 Lymph % (Auto) 37.4 [place] % (Auto) 8.3 Eos % (Auto) 1.7 Baso % (Auto) 0.7 Absolute Neuts (auto) 3.8 Absolute Lymphs (auto) 2.7 Absolute Monos (auto) 0.6 Absolute Eos (auto) 0.1 Absolute Basos (auto) 0.1 Seg Neutrophils % 51.9 PT 12.9 INR 0.95 INR (Anticoag Therapy) APTT Sodium 141.9 Potassium 3.5 L Chloride 108 H Carbon Dioxide 27 Anion Gap 7 BUN 16 Creatinine 0.87 Est GFR ( Amer) > 60 Est GFR (MDRD) Non-Af > 60 Glucose 124 H Calcium 9.0 Magnesium Total Bilirubin 0.4 Direct Bilirubin 0.3 Neonat Total Bilirubin Not Reportable Neonat Direct Bilirubin Not Reportable Neonat Indirect Bili Not Reportable AST 29 ALT 25 Alkaline Phosphatase 84 Creatine Kinase 183 H CK-MB (CK-2) Troponin I NT-Pro-B Natriuret Pep Total Protein 7.2 Albumin 4.0 05/10/20 05/10/20 05/10/20 23:32 23:32 23:32 WBC RBC Hgb Hct MCV MCH MCHC RDW Plt Count Lymph % (Auto) [place] % (Auto) Eos % (Auto) Baso % (Auto) Absolute Neuts (auto) Absolute Lymphs (auto) Absolute Monos (auto) Absolute Eos (auto) Absolute Basos (auto) Seg Neutrophils % PT Cancelled INR Cancelled INR (Anticoag Therapy) Cancelled APTT 32.4 Sodium Potassium Chloride Carbon Dioxide Anion Gap BUN Creatinine Est GFR ( Amer) Est GFR (MDRD) Non-Af Glucose Calcium Magnesium Total Bilirubin Direct Bilirubin Neonat Total Bilirubin Neonat Direct Bilirubin Neonat Indirect Bili AST ALT Alkaline Phosphatase Creatine Kinase CK-MB (CK-2) 2.22 Troponin I < 0.012 NT-Pro-B Natriuret Pep 539 H Total Protein Albumin 05/10/20 05/11/20 05/11/20 23:32 05:30 05:30 WBC RBC Hgb Hct MCV MCH MCHC RDW Plt Count Lymph % (Auto) [place] % (Auto) Eos % (Auto) Baso % (Auto) Absolute Neuts (auto) Absolute Lymphs (auto) Absolute Monos (auto) Absolute Eos (auto) Absolute Basos (auto) Seg Neutrophils % PT INR INR (Anticoag Therapy) APTT Sodium Potassium Chloride Carbon Dioxide Anion Gap BUN Creatinine Est GFR ( Amer) Est GFR (MDRD) Non-Af Glucose Calcium Magnesium 2.5 H Total Bilirubin Direct Bilirubin Neonat Total Bilirubin Neonat Direct Bilirubin Neonat Indirect Bili AST ALT Alkaline Phosphatase Creatine Kinase 123 CK-MB (CK-2) 1.58 Troponin I < 0.012 NT-Pro-B Natriuret Pep Total Protein Albumin 05/11/20 05/11/20 05/11/20 11:16 11:16 17:05 WBC RBC Hgb Hct MCV MCH MCHC RDW Plt Count Lymph % (Auto) [place] % (Auto) Eos % (Auto) Baso % (Auto) Absolute Neuts (auto) Absolute Lymphs (auto) Absolute Monos (auto) Absolute Eos (auto) Absolute Basos (auto) Seg Neutrophils % PT INR INR (Anticoag Therapy) APTT Sodium Potassium Chloride Carbon Dioxide Anion Gap BUN Creatinine Est GFR ( Amer) Est GFR (MDRD) Non-Af Glucose Calcium Magnesium Total Bilirubin Direct Bilirubin Neonat Total Bilirubin Neonat Direct Bilirubin Neonat Indirect Bili AST ALT Alkaline Phosphatase Creatine Kinase 103 89 CK-MB (CK-2) 1.47 Troponin I < 0.012 NT-Pro-B Natriuret Pep Total Protein Albumin 05/11/20 17:05 WBC RBC Hgb Hct MCV MCH MCHC RDW Plt Count Lymph % (Auto) [place] % (Auto) Eos % (Auto) Baso % (Auto) Absolute Neuts (auto) Absolute Lymphs (auto) Absolute Monos (auto) Absolute Eos (auto) Absolute Basos (auto) Seg Neutrophils % PT INR INR (Anticoag Therapy) APTT Sodium Potassium Chloride Carbon Dioxide Anion Gap BUN Creatinine Est GFR ( Amer) Est GFR (MDRD) Non-Af Glucose Calcium Magnesium Total Bilirubin Direct Bilirubin Neonat Total Bilirubin Neonat Direct Bilirubin Neonat Indirect Bili AST ALT Alkaline Phosphatase Creatine Kinase CK-MB (CK-2) 1.26 Troponin I 0.013 NT-Pro-B Natriuret Pep Total Protein Albumin Chest X-Ray 05/10/20 23:35 IMPRESSION: 1. No acute pulmonary findings. 2. AICD IMPRESSION/RECOMMENDATION: 1. Chest pain. The patient has no further chest pains. There is no evidence of non-ST relation SC. There is some EKG changes in the lateral leads. Whether this is secondary to cardiac memory versus ischemia cannot be differentiated at present. Will get the patient's AICD interrogated. Note that the patient gets severe headache with the nitroglycerin. Hence we will start the patient on amlodipine later on. We will have the patient use sublingual nitroglycerin if needed. 2. Coronary artery disease. History of SC and history of totally occluded LAD which was opened up percutaneously and history of stent placement. Will get records. Will get a stress test on the patient this can be done as an outpatient. 3. Ischemic cardiomyopathy with LV ejection fraction of 30% a few years ago. We will recheck the patient's echocardiogram. This can be done as an outpatient also. Note that the patient took his last dose of lisinopril on 05/10/2020 at around 12 noon. Hence will wait for 36 hours prior to starting the patient on Entresto. We will continue the patient's Coreg. And spironolactone. 4. Ventricular fibrillation and status post AICD placement. No firing of AICD. Will get the AICD interrogated. 5. Hypertension: Well-controlled 6. Hyperlipidemia: Continue statin 7. History of GERD: Recommend continue pantoprazole. 8. History of restless leg syndrome. Medications reviewed. Medications restarted. Medical regimen and management plan discussed with attending provider on the case. Medical decision making is of high complexity. 60 minutes spent as patient more than 50% time spent in direct patient care. Will follow.
[2020-05-11] MEDS: CARVEDILOL 12.5 MG TABLET PO SCH (22:43)
[2020-05-12] MEDS: PANTOPRAZOLE SODIUM 40 MG TABLET.DR PO SCH (05:23)
[2020-05-12] MEDS: HEPARIN SOD (PORCINE) 5,000 UNIT/ML 1 ML VIAL SUBCUT SCH ×2 (05:23→13:32)
[2020-05-12 06:43] LABS: HEMATOCRIT 39.9 % (37.9-51.0); HEMOGLOBIN 13.6 g/dL (13.5-17.0); MEAN CORPUSCULAR HEMOGLOBIN 31.7 pg (27.0-33.4); MEAN CORPUSCULAR VOLUME 93 fl (80-97); PLATELET COUNT 149 10^3/uL (150-450); RED BLOOD COUNT 4.28 10^6/uL (4.35-5.55); RED CELL DISTRIBUTION WIDTH 14.9 % (11.5-14.0); WHITE BLOOD COUNT 5.1 10^3/uL (4.0-10.5)
--- NOTE | 2020-05-12 07:16 | EKG REPORT ---
SEVERITY:- ABNORMAL ECG - SINUS RHYTHM VENTRICULAR PREMATURE COMPLEX CONSIDER ANTERIOR INFARCT ABNORMAL T, CONSIDER ISCHEMIA, LATERAL LEADS : Confirmed by: Ric Morris MD 12-May-2020 07:16:23
[2020-05-12 07:22] LABS: ANION GAP 6 (5-19); BLOOD UREA NITROGEN 15 mg/dL (7-20); CALCIUM 8.6 mg/dL (8.4-10.2); CARBON DIOXIDE 26 mmol/L (22-30); CHLORIDE 107 mmol/L (98-107); CHOLESTEROL 154.04 mg/dL (0-200); GLUCOSE 112 mg/dL (75-110); POTASSIUM 3.8 mmol/L (3.6-5.0); TRIGLYCERIDES 134 mg/dL (<150)
[2020-05-12 07:32] LABS: DIRECT LDL 101 mg/dL (<100)
[2020-05-12] MEDS: DOCUSATE SODIUM 100 MG CAPSULE PO SCH (09:41)
[2020-05-12] MEDS: CARVEDILOL 12.5 MG TABLET PO SCH (09:41)
[2020-05-12] MEDS ORDERED: FUROSEMIDE 40 MG TABLET PO SCH (10:00)
[2020-05-12] MEDS ORDERED: SPIRONOLACTONE 25 MG TABLET PO SCH (10:00)
[2020-05-12] MEDS ORDERED: SACUBITRIL/VALSARTAN 24 MG/26 MG TABLET PO SCH (11:00)
--- NOTE | 2020-05-12 13:00 | PDOC DISCHARGE SUMMARY ---
Impression - Admit/DC Date/PCP Admission Date/Primary Care Provider: 05/11/20 01:42 KERMIT FIGUEROA MD Discharge Date: 05/12/20 - Assessment Summary: Patient will be admitted to the telemetry unit where he will receive routine supportive and symptomatic cares. A consultation with Dr. Walker will be obtained for cardiology evaluation. Serial cardiac enzymes will be performed. Patient received morphine sulfate 2 to 4 mg IV every 2 hours as needed for pain. He will receive Ativan 1 mg IV every 4 hours as needed for anxiety or restlessness. He will receive nitroglycerin 2% ointment 1 g applied every 6 hours. CBCs, metabolic profiles and additional radiographic and/or laboratory evaluations will be obtained as needed. Smoking cessation is advised and counseled briefly at the bedside. A nicotine replacement patch is available for the patient's use, if desired. - Additional Information Resuscitation Status: Full Code Discharge Diet: As Tolerated Discharge Activity: Activity As Tolerated Ref[facility]: [facility] [[facility]] - Follow up as needed (PATIENT WILL SCHEDULE OWN FOLLOW UP APPT.) Prescriptions: Sacubitril/Valsartan [Entresto 24 mg/26 mg Tablet] 1 tab PO Q12 #60 tablet Home Medications: Aspirin [Ecotrin 81 mg EC Tablet] 81 mg PO BID 05/11/20 Atorvastatin Calcium [Lipitor 80 mg Tablet] 80 mg PO QHS 05/11/20 Carvedilol 25 mg PO BID 05/11/20 Fluoxetine HCl [Prozac 20 mg Capsule] 20 mg PO DAILY 05/11/20 Multivitamin [Tab-A-Starr] 1 each PO DAILY 05/11/20 Nitroglycerin [Nitrostat 0.4 mg (1/150 Gr) Tabs 25/Bottle] 1 tab SL Q5MP PRN 05/11/20 Omeprazole 40 mg PO DAILY 05/11/20 Ropinirole HCl [Requip] 7.5 mg PO QPM 05/11/20 Spironolactone [Aldactone 25 mg Tablet] 25 mg PO QAM 05/11/20 Acetaminophen [Tylenol 325 mg Tablet] 650 mg PO Q4HP PRN tablet 05/12/20 Furosemide [Lasix 40 mg Tablet] 40 mg PO DAILY #0 05/12/20 Nicotine [Nicoderm 21 mg/24 Hr Transderm Patch] 1 each TD DAILYP PRN patch.td24 05/12/20 Sacubitril/Valsartan [Entresto 24 mg/26 mg Tablet] 1 tab PO Q12 #60 tablet 05/12/20 History of Present Illiness History of Present Illness: Per Admitting Physician: "HERNAN ÁLVAREZ is a 64 year old male who presents the emergency room with acute chest pain. He admits developing intermittent brief periods of chest pain about 1 PM on 05/10/2020. The chest pain was a mild intermittent substernal tightness/pressure without radiation. The pain began while he was sitting at home watching football on television. He continued to have intermittent episodes of pain until he developed a sustained episode of moderately severe pain radiating down his left arm at 11 PM causing him to summon EMS. He admits accompanying moderate dyspnea with generalized weakness and associated orthostatic lightheadedness. He denies other associated or accompanying signs and symptoms. He admits prior similar episodes due to coronary artery disease. He did take nitroglycerin at home without improvement prior to calling EMS. He has not identified any aggravating or ameliorating factors for his chest pain. In the emergency room he was found to have an EKG and initial cardiac enzymes that showed no evidence of acute myocardial ischemia or injury. His pain improved with nitroglycerin, oxygen and aspirin given by EMS. His pain resolved with morphine and additional nitroglycerin in the emergency room. He was subsequently admitted to the hospital on observation status for further evaluation and treatment." Hospital Course Hospital Course: Per Admitting Physician: "HERNAN ÁLVAREZ is a 64 year old male who presents the emergency room with acute chest pain. He admits developing intermittent brief periods of chest pain about 1 PM on 05/10/2020. The chest pain was a mild intermittent substernal tightness/pressure without radiation. The pain began while he was sitting at home watching football on television. He continued to have intermittent episodes of pain until he developed a sustained episode of moderately severe pain radiating down his left arm at 11 PM causing him to summon EMS. He admits accompanying moderate dyspnea with generalized weakness and associated orthostatic lightheadedness. He denies other associated or accompanying signs and symptoms. He admits prior similar episodes due to coronary artery disease. He did take nitroglycerin at home without improvement prior to calling EMS. He has not identified any aggravating or ameliorating factors for his chest pain. In the emergency room he was found to have an EKG and initial cardiac enzymes that showed no evidence of acute myocardial ischemia or injury. His pain improved with nitroglycerin, oxygen and aspirin given by EMS. His pain resolved with morphine and additional nitroglycerin in the emergency room. He was subsequently admitted to the hospital on observation status for further evaluation and treatment." Cardiology was consulted and they evaluated the patient as well. I discussed the case with them and they stated they would like the patient to have an outpatient echocardiogram and an outpatient stress test. They have started the patient on Entresto and this will be continued at discharge. It was carefully explained to the patient that he should not be taking any JAMES inhibitor's or ARB use while he is on Entresto. Patient has no new complaints today his chest pain is resolved. He is in agreement with the plan and would like to be discharged home today. (1) Chest pain at rest Is this a current diagnosis for this admission?: Yes (2) Coronary artery disease Qualifiers: Coronary Disease-Associated Artery/Lesion type: [place] artery [place] vs. transplanted heart: [place] heart Associated angina: angina presence unspecified Qualified Code(s): I25.10 - Atherosclerotic heart disease of [place] coronary artery without angina pectoris Is this a current diagnosis for this admission?: Yes (3) Gastroesophageal reflux disease Qualifiers: Esophagitis presence: esophagitis presence not specified Qualified Code(s): K21.9 - Gastro-esophageal reflux disease without esophagitis Is this a current diagnosis for this admission?: Yes (4) CHF (congestive heart failure) Qualifiers: Heart failure type: unspecified Heart failure chronicity: unspecified Qualified Code(s): I50.9 - Heart failure, unspecified Is this a current diagnosis for this admission?: Yes (5) Restless leg syndrome Is this a current diagnosis for this admission?: Yes (6) Tobacco use disorder, continuous Is this a current diagnosis for this admission?: Yes Physical Exam Vital Signs: Temp Pulse Resp BP Pulse Ox 97.4 F 70 17 129/72 H 95 05/12/20 10:40 05/12/20 10:40 05/12/20 10:40 05/12/20 10:40 05/12/20 10:40 Intake & Output 05/11/20 05/12/20 05/13/20 06:59 06:59 06:59 Intake Total 1320 240 Balance 1320 240 Weight 86 kg 88.8 kg General appearance: PRESENT: no acute distress, well-developed, well-nourished Head exam: PRESENT: atraumatic, normocephalic Eye exam: PRESENT: conjunctiva pink Mouth exam: PRESENT: moist Respiratory exam: PRESENT: clear to auscultation jalil. ABSENT: rales, rhonchi, wheezes Cardiovascular exam: PRESENT: RRR. ABSENT: diastolic murmur, rubs, systolic murmur GI/Abdominal exam: PRESENT: normal bowel sounds, soft. ABSENT: distended, guarding, mass, organolmegaly, rebound, tenderness Extremities exam: ABSENT: pedal edema Neurological exam: PRESENT: alert, awake, oriented to person, oriented to place, oriented to time, oriented to situation Psychiatric exam: PRESENT: appropriate affect, normal mood Skin exam: PRESENT: dry, intact, warm Results Laboratory Results: WBC 5.1 10^3/uL (4.0-10.5) 05/12/20 05:38 RBC 4.28 10^6/uL (4.35-5.55) L 05/12/20 05:38 Hgb 13.6 g/dL (13.5-17.0) 05/12/20 05:38 Hct 39.9 % (37.9-51.0) 05/12/20 05:38 MCV 93 fl (80-97) 05/12/20 05:38 MCH 31.7 pg (27.0-33.4) 05/12/20 05:38 MCHC 34.0 g/dL (32.0-36.0) 05/12/20 05:38 RDW 14.9 % (11.5-14.0) H 05/12/20 05:38 Plt Count 149 10^3/uL (150-450) L 05/12/20 05:38 Lymph % (Auto) 37.4 % (13-45) 05/10/20 23:32 [place] % (Auto) 8.3 % (3-13) 05/10/20 23:32 Eos % (Auto) 1.7 % (0-6) 05/10/20 23:32 Baso % (Auto) 0.7 % (0-2) 05/10/20 23:32 Absolute Neuts (auto) 3.8 10^3/uL (1.7-8.2) 05/10/20 23:32 Absolute Lymphs (auto) 2.7 10^3/uL (0.5-4.7) 05/10/20 23:32 Absolute Monos (auto) 0.6 10^3/uL (0.1-1.4) 05/10/20 23:32 Absolute Eos (auto) 0.1 10^3/uL (0.0-0.6) 05/10/20 23:32 Absolute Basos (auto) 0.1 10^3/uL (0.0-0.2) 05/10/20 23:32 Seg Neutrophils % 51.9 % (42-78) 05/10/20 23:32 PT 12.9 SEC (11.4-15.4) 05/10/20 23:32 PT Cancelled 05/10/20 23:32 INR 0.95 05/10/20 23:32 INR Cancelled 05/10/20 23:32 INR (Anticoag Therapy) Cancelled 05/10/20 23:32 APTT 32.4 SEC (23.5-35.8) 05/10/20 23:32 Sodium 139.3 mmol/L (137-145) 05/12/20 05:38 Potassium 3.8 mmol/L (3.6-5.0) 05/12/20 05:38 Chloride 107 mmol/L (98-107) 05/12/20 05:38 Carbon Dioxide 26 mmol/L (22-30) 05/12/20 05:38 Anion Gap 6 (5-19) 05/12/20 05:38 BUN 15 mg/dL (7-20) 05/12/20 05:38 Creatinine 0.84 mg/dL (0.52-1.25) 05/12/20 05:38 Est GFR ( Amer) > 60 (>60) 05/12/20 05:38 Est GFR (MDRD) Non-Af > 60 (>60) 05/12/20 05:38 Glucose 112 mg/dL (75-110) H 05/12/20 05:38 Calcium 8.6 mg/dL (8.4-10.2) 05/12/20 05:38 Magnesium 2.2 mg/dL (1.6-2.3) 05/12/20 05:38 Total Bilirubin 0.4 mg/dL (0.2-1.3) 05/10/20 23:32 Direct Bilirubin 0.3 mg/dL (0.0-0.4) 05/10/20 23:32 Neonat Total Bilirubin Not Reportable 05/10/20 23:32 Neonat Direct Bilirubin Not Reportable 05/10/20 23:32 Neonat Indirect Bili Not Reportable 05/10/20 23:32 AST 29 U/L (17-59) 05/10/20 23:32 ALT 25 U/L (<50) 05/10/20 23:32 Alkaline Phosphatase 84 U/L (38-126) 05/10/20 23:32 Creatine Kinase 89 U/L (55-170) 05/11/20 17:05 CK-MB (CK-2) 1.26 ng/mL (<4.55) 05/11/20 17:05 Troponin I 0.013 ng/mL 05/11/20 17:05 NT-Pro-B Natriuret Pep 539 pg/mL (<125) H 05/10/20 23:32 Total Protein 7.2 g/dL (6.3-8.2) 05/10/20 23:32 Albumin 4.0 g/dL (3.5-5.0) 05/10/20 23:32 Triglycerides 134 mg/dL (<150) 05/12/20 05:38 Cholesterol 154.04 mg/dL (0-200) 05/12/20 05:38 LDL Cholesterol Direct 101 mg/dL (<100) H 05/12/20 05:38 VLDL Cholesterol 27.0 mg/dL (10-31) 05/12/20 05:38 HDL Cholesterol 45 mg/dL (>40) 05/12/20 05:38 TSH 1.36 uIU/mL (0.47-4.68) 05/12/20 05:38 05/10/20 05/10/20 05/11/20 23:32 23:32 05:30 CK-MB (CK-2) 2.22 1.58 Troponin I < 0.012 < 0.012 NT-Pro-B Natriuret Pep 539 H 05/11/20 05/11/20 11:16 17:05 CK-MB (CK-2) 1.47 1.26 Troponin I < 0.012 0.013 NT-Pro-B Natriuret Pep Impressions: Chest X-Ray 05/10/20 23:35 IMPRESSION: 1. No acute pulmonary findings. 2. AICD Plan Plan of Treatment: Follow-up with PCP Follow-up with cardiology No smoking Time Spent: Greater than 30 Minutes Stroke Is this a Stroke Patient?: No Acute Heart Failure Is this a Heart Failure Patient?: Yes Documentation of LVEF assessment?: Yes LVEF: LVEF Less Than or Equal to 35% Anticoagulant Therapy: N/A Discharged on Evidence-Based Beta Blockers: Yes Discharged on ARNI?: Yes Discharged on ARB?: N/A-Discharged on ARNI Discharged on ACEI?: N/A Discharged on ARNI For LVEF <35%, discharged on Aldosterone Antagonist?: Yes Follow-up Appointment scheduled within 7 days?: Yes
--- NOTE | 2020-05-12 15:57 | Progress Note ---
Provider Note Provider Note: CARDIOLOGY PROGRESS NOTE by Dr. Cesia Mcguire on 05/12/2020. SUBJECTIVE: The patient has no further chest pain. There is no shortness of breath. There is no PND orthopnea. There is no firing of his AICD. There is no leg edema. There is no arrhythmias seen on the monitor. PHYSICAL EXAMINATION: The patient is well-built and well-nourished in no acute distress Selected Entries 05/12/20 08:26 Temperature 97.4 F Temperature Oral Source Pulse Rate 70 Respiratory 17 Rate Blood Pressure 124/66 Blood Pressure 85 Mean BP Location Right Arm BP Position Supine O2 Sat by Pulse 95 Oximetry Oxygen Delivery Room Air Method HEAD: Head is atraumatic normocephalic. Eyes: Pupils are equal round regular reactive light accommodation extraocular movements are normal there is no congenital pallor there is no scleral icterus. Ears: External auditory canals are clear, there are no lesions of the pinna. Nose: No deviated nasal septum and no inflammation of the nasal mucous membrane. Mouth: Mucous membranes of mouth are moist tongue is moist there is no ulcers there is no bleeding from the gums. Throat: There is no redness of the oropharynx there is no exudates. Skin: There is no petechia or ecchymosis there is no skin lesions or skin rashes. Neck: Neck is supple there is no JVD carotids equal there is no bruit there is no lymphadenopathy there is no neck stiffness. There is no goiter trachea central lungs: Lungs are clear to auscultation percussion there is no accessory muscles of respiration in use. There is no rhonchi rales or wheezing. There is no chest wall tenderness. HEART: S1-S2 is heard there is no S3 gallop there is no S4 gallop S1 is of normal intensity. There is no rub. The systolic murmur in the left sternal border and apex without radiation. Abdomen: Abdomen is soft nontender there is no paraspinal megaly bowel sounds well heard there is no tender areas of masses. There is no rebound guarding or rigidity. Extremities: Femorals are well felt there is no femoral bruits neck pulses are well felt there is no pedal edema there is no DVT or cellulitis there is no cyanosis or clubbing there is no DVT or cellulitis. There is no calf tenderness. EDITING CLERK: The patient is awake alert oriented 3 with no focal deficits. Psychiatric: The patient judgment and insight are intact and her affect is normal. Labs- All tests 24 hr 05/12/20 05/12/20 05/12/20 05:38 05:38 05:38 WBC 5.1 RBC 4.28 L Hgb 13.6 Hct 39.9 MCV 93 MCH 31.7 MCHC 34.0 RDW 14.9 H Plt Count 149 L Sodium 139.3 Potassium 3.8 Chloride 107 Carbon Dioxide 26 Anion Gap 6 BUN 15 Creatinine 0.84 Est GFR ( Amer) > 60 Est GFR (MDRD) Non-Af > 60 Glucose 112 H Calcium 8.6 Magnesium 2.2 Triglycerides 134 Cholesterol 154.04 LDL Cholesterol Direct 101 H VLDL Cholesterol 27.0 HDL Cholesterol 45 TSH 1.36 Chest X-Ray 05/10/20 23:35 IMPRESSION: 1. No acute pulmonary findings. 2. AICD IMPRESSION/RECOMMENDATION: 1. Chest pain. The patient has no further chest pains. There is no evidence of non-ST relation RI. The the patient is tolerating amlodipine. We will continue aspirin and beta-saul. Continue the patient's statin. Cardiac status is stable. 2. Coronary artery disease. History of RI and history of totally occluded LAD which was opened up percutaneously and history of stent placement. Will get records. Will get a stress test on the patient this can be done as an outpatient. 3. Ischemic cardiomyopathy with LV ejection fraction of 30% a few years ago. We will recheck the patient's echocardiogram. This can be done as an outpatient also. Note that the patient took his last dose of lisinopril on 05/10/2020 at around 12 noon. . We will continue the patient's Coreg. And spironolactone. 4. Ventricular fibrillation and status post a replacement. No firing of AICD. Will get the AICD interrogated. 5. Hypertension: Well-controlled 6. Hyperlipidemia: Continue statin. Note that the patient's HDL and triglycerides are good. The patient's LDL is borderline elevated at 101.. We will try will change the patient's atorvastatin to Crestor as an outpatient. 7. History of GERD: Recommend continue pantoprazole. 8. History of restless leg syndrome. Medications reviewed. Medications restarted. Medical regimen and management plan discussed with attending provider on the case. Medical decision making is of high complexity. 40 minutes spent as patient more than 50% time spent in direct patient care. Cardiac status is stable. We will follow the patient in the office. Okay to discharge the patient. Discussed with the hospitalist
[2020-05-12 15:58] VITALS: BP 135/79
== END 2020-05-12 15:33 | disposition home or self-care (01) ==
LOC: ER 23:29 → EH 05-11 01:42 → INTOOBSV 05-11 01:42 → 4S 05-11 03:04
PROVIDERS: ADMIT Emergency Medicine; ATTEND Internal Medicine
DX: R07.89 Other chest pain (principal); I25.10 Atherosclerotic heart disease of native coronary artery without angina pectoris; K21.9 Gastro-esophageal reflux disease without esophagitis; I11.0 Hypertensive heart disease with heart failure; I50.9 Heart failure, unspecified; G25.81 Restless legs syndrome; R51 Headache; R06.00 Dyspnea, unspecified; R53.1 Weakness; R42 Dizziness and giddiness; M79.602 Pain in left arm; F17.290 Nicotine dependence, other tobacco product, uncomplicated; R61 Generalized hyperhidrosis; E78.5 Hyperlipidemia, unspecified; R01.1 Cardiac murmur, unspecified; I25.5 Ischemic cardiomyopathy; I49.01 Ventricular fibrillation; R05 Cough; E66.9 Obesity, unspecified; I25.2 Old myocardial infarction; Z79.82 Long term (current) use of aspirin; Z79.899 Other long term (current) drug therapy; Z95.810 Presence of automatic (implantable) cardiac defibrillator; Z95.5 Presence of coronary angioplasty implant and graft; Z82.49 Family history of ischemic heart disease and other diseases of the circulatory system; Z82.5 Family history of asthma and other chronic lower respiratory diseases
CPT/HCPCS: 93005 ×2; 99285; 96374; 36415 ×3; 82553 ×2; 82550 ×2; 83735 ×2; 84443; 85025; 85027; 85610; 85730; 80048; 80053; 84484 ×2; 80061; 83880; 71045; 93010 ×2; 94640; 99406; G0378 ×3; J1644 ×2; J3490 ×5; J2405